=== PATIENT | female | born 1970 | race Caucasian/White ===

== ENCOUNTER 2017-02-01 20:56 | Emergency (ER) | payer SELFPAY ==
[~2017-02-01] VITALS: Ht 167.6 cm; Wt 97.5 kg
[2017-02-01 21:02] VITALS: Ht 167.6 cm; Wt 97.5 kg
[2017-02-01] MEDS ORDERED: CLON-412 PO (21:33)
[2017-02-01] MEDS ORDERED: CLON-379 PO (21:40)
[2017-02-01] MEDS ORDERED: VENL37.59 PO (21:40)
[2017-02-01 21:42] VITALS: PULSE 99
--- NOTE | 2017-02-01 21:42 | ERD ---
ER Documentation Chief Complaint Date/Time DATE: 02/01/17 TIME: 21:39 Chief Complaint MED REFILL KLONOPIN 1MG BID. VISITING OUT OF STATE TIL MONDAY HPI 36 year old female presents to emergency department for possible refill of her Klonopin, patient's doctor tried to refill the Klonopin but was unable to refill it [place]. Patient has history of anxiety, she left her bottle in [place]. Patient is going home in 2 days, and just wants enough pills to get by for 2 days. Patient feels anxious, denies any homicidal or suicidal ideations. Patient denies any other complaints. ROS All systems reviewed and are negative except as per history of present illness. Medications Home Meds Active Scripts Clonazepam* (Klonopin*) 1 Mg Tablet, 1 MG PO BID, #5 TAB Prov:KIRILL HOWE NP 02/01/17 Reported Medications Clonidine Hcl* (Clonidine Hcl*) Unknown Strength Tab, PO Q6, TAB 02/01/17 Venlafaxine Hcl* (Effexor XR*) 37.5 Mg Tab.er.24, 37.5 MG PO DAILY, TAB 02/01/17 Allergies Allergies: Coded Allergies: No Known Allergy (Unverified , 02/01/17) PMhx/Soc Medical and Surgical Hx: pt denies Surgical Hx Hx Psychiatric Problems: Yes (depression, anxiety) Hx Alcohol Use: No Hx Substance Use: No Hx Tobacco Use: No FmHx Family History: No coronary disease, No diabetes, No other Physical Exam Vitals Vital Signs Date Time Temp Pulse Resp B/P Pulse Ox O2 Delivery O2 Flow Rate FiO2 02/01/17 21:42 99 02/01/17 21:02 99.5 130 22 130/87 100 Physical Exam GENERAL: The patient is well developed and appropriate for usual state of health, in no apparent distress. CHEST: Clear to auscultation bilaterally. There are no rales, wheezes or rhonchi. HEART: Regular rate and rhythm. No murmurs, clicks, rubs or gallops. No S3 or S4. ABDOMEN: Soft, nontender and nondistended. Good bowel sounds. No rebound or guarding. No gross peritonitis. No gross organomegaly or masses. No Lucio sign or McBurney point tenderness. BACK: No midline or flank tenderness. EXTREMITIES: Equal pulses bilaterally. There is no peripheral clubbing, cyanosis or edema. No focal swelling or erythema. Full range of motion. Grossly neurovascularly intact. NEURO: Alert and oriented. Cranial nerves 2-12 intact. Motor strength in all 4 extremities with 5/5 strength. Sensation grossly intact. Normal speech and gait. SKIN: There is no apparent rash or petechia. The skin is warm and dry. HEMATOLOGIC AND LYMPHATIC: There is no evidence of excessive bruising or lymphedema. No gross cervical, axillary, or inguinal lymphadenopathy. PSYCHIATRIC: Noted to be anxious, having tremors, crying, patient does not verbalize homicidal or suicidal ideations. No hallucinations or delusions. Procedures/MDM Medical decision making: Patient has anxiety, is feeling anxious at this time, she left her bottle in [facility], patient was given a refill of 5 pills of Klonopin, is advised to follow with her student career development specialist when she goes back to [place]. At this time, no symptoms of any psychiatric emergencies. Patient does not verbalize homicidal or suicidal ideations. Patient appears well and is hemodynamically stable. Prescription was given for Klonopin 1 mg by mouth twice a day, 5 pills. Patient is advised to return to emergency department for homicidal, suicidal ideations, or any other worsening symptoms. Disposition: Home. Stable. Departure Diagnosis: Primary Impression: Anxiety Additional Impression: Encounter for medication refill Condition: Stable Patient Instructions: Taking Medicine Safely, Anxiety Reaction KIRILL HOWE NP Feb 01, 2017 21:42
== END 2017-02-01 21:44 | disposition home or self-care (01) ==
LOC: FTE 20:56
DX: F41.9 Anxiety disorder, unspecified (principal)
CPT/HCPCS: 99281